=== PATIENT | male | born 1980 | race Caucasian/White ===

== ENCOUNTER 2016-09-05 17:52 | Emergency (ER) | payer OTHER ==
[~2016-09-05 17:52] MED LIST: SULFAMETHOXAZO1 EACH PO; VIBRAMYCIN100 MG PO
== END 2016-09-05 19:15 | disposition left against medical advice (07) ==
LOC: FER 17:52
DX: K08.89 Other specified disorders of teeth and supporting structures (principal); Z53.8 Procedure and treatment not carried out for other reasons

== ENCOUNTER 2021-12-12 00:30 | Emergency (ER) | payer OTHER ==
[~2021-12-12 00:30] MED LIST changes: +ANTIVERT25 MG PO; +AZITHROMYCIN250 MG PO; +BACTRIM DS TAB1 EACH PO; +FLEXERIL5 MG PO; +FLONASE ALLER15.8 ML; +MEDROL 4MG DOSEP4 MG PO; +NAPROXEN500 MG PO; +ONDANSETRON ODT4 MG PO; +PREDNISONE20 MG PO; +TAMIFLU 75MG CA75 MG PO; +VENTOLIN HFA IN18 GM INH
[2021-12-12 01:12] LABS: BASOPHIL 0.8 % (0-2); EOSINOPHIL 0.4 % (0-5); HCT 44.3 % (42.0-52.0); HGB 14.8 g/dl (13.2-18.0); LYMPHOCYTE 15.1 % (15-48); MCH 28.2 pg (25.0-31.0); MCHC 33.4 g/dL (32.0-36.0); MCV 84.5 fL (78.0-100.0); MONOCYTE 11.7 % (0-12); MPV 10.5 fL (6.0-9.5); NEUTROPHIL 71.6 % (41-80); NRBC 0; PLT 336 K/uL (150-400); RBC 5.24 M/uL (4.70-6.00); RDW 12.6 % (11.5-14.0); WBC 11.1 K/uL (4.0-10.5)
[2021-12-12 01:26] LABS: ACETAMINOPHEN (TYLENOL) < 2.0 ug/mL (10.0-30.0); ALBUMIN 3.9 g/dL (3.4-5.0); ALKALINE PHOSHATASE 84 U/L (46-116); ALT 73 U/L (16-63); AST 62 U/L (15-37); BILIRUBIN - TOTAL 0.6 mg/dL (0.2-1.0); BUN 10 mg/dL (7-18); CHLORIDE 100 mmol/L (98-107); CO2 (BICARBONATE) 26 mmol/L (21-32); CREATININE 0.91 mg/dL (0.67-1.17); GLOBULIN (CALCULATION) 4.3 g/dL; GLUCOSE 124 mg/dL (74-106); TOTAL PROTEIN 8.2 g/dL (6.4-8.2)
[2021-12-12 04:37] LABS: AMPHETAMINES POSITIVE (NEGATIVE); BARBITURATES NEGATIVE (NEGATIVE); ECSTASY (MDMA) NEGATIVE (NEGATIVE); MARIJUANA (THC) NEGATIVE (NEGATIVE); METHADONE POSITIVE (NEGATIVE); OPIATES NEGATIVE (NEGATIVE); OXYCODONE NEGATIVE (NEGATIVE)
[2021-12-12 06:21] LABS: BILIRUBIN NEGATIVE (NEGATIVE); BLOOD NEGATIVE Ery/uL (NEGATIVE); CLARITY CLEAR (CLEAR); COLOR YELLOW (YELLOW); GLUCOSE (U) NORMAL (NORMAL); LEUKOCYTES NEGATIVE Leu/uL (NEGATIVE); NITRITE NEGATIVE (NEGATIVE); PROTEIN NEGATIVE (NEGATIVE)
== END 2021-12-12 09:32 | disposition home or self-care (01) ==
LOC: FER 00:30
PROVIDERS: Internal Medicine
DX: F15.129 Other stimulant abuse with intoxication, unspecified (principal); F11.10 Opioid abuse, uncomplicated; Z88.0 Allergy status to penicillin; Z88.1 Allergy status to other antibiotic agents
CPT/HCPCS: 36415; 70450; 80053; 80305; 81003; 84484; 85025; 93005; 96372; G0480; J2060; J3486; J7030